=== PATIENT | female | born 1985 | race Caucasian/White ===

== ENCOUNTER 2018-05-23 00:18 | Outpatient (CLI) | payer SELFPAY ==
--- NOTE | 2018-05-23 09:20 | DI.RAD_ITS ---
SYMPTOMS/DIAGNOSIS: PAIN, LEFT FINGER, M79.645, ? FX LEFT HAND: Three views were obtained. No bony or soft tissue abnormality seen.
== END 2018-05-23 00:38 ==
PROVIDERS: PCP Nurse Practitioner; Visit Provider Internal Medicine
DX: M79.645 Pain in left finger(s) (principal)
CPT/HCPCS: 73130

== ENCOUNTER 2018-09-12 13:08 | Outpatient (REF) | payer SELFPAY | END 2018-09-12 13:28 | LOC: LBN 13:08 | PROVIDERS: PCP Nurse Practitioner; Visit Provider Physical Therapy Assistant | DX: K61.1 Rectal abscess (principal) | CPT/HCPCS: 87077; 87070; 87186; 87205 ==

== ENCOUNTER 2018-11-07 15:42 | Outpatient (REF) | payer SELFPAY ==
[2018-11-07 19:01] LABS: Absolute Basophil Count 0.01 k/cumm (0.0-0.2); Absolute Eosinophil Count 0.21 k/cumm (0.0-0.7); Absolute Lymphocyte Count 2.23 k/cumm (1.2-3.4); Absolute Neutrophil Count 1.46 k/cumm (1.2-6.7); Basophils % 0.2; HCT 37.5 % (36.0-46.0); HGB 12.5 g/dL (12.0-15.5); Mean Corp. HGB Concentration 33.3 g/dL (32.0-36.0); Mean Corpuscular Hemoglobin 28.9 pg (27.0-33.0); Mean Corpuscular Volume 86.8 fL (80-95); Mean Platelet Volume 13.1 fL (8.0-11.0); Monocytes % 7.1; Neutrophils % 34.7; RBC 4.32 m/cumm (4.00-5.20); RBC Distribution Width 14.3 % (11.7-14.6); White Blood Cell Count 4.21 k/cumm (4.4-10.8)
[2018-11-07 20:22] LABS: ESR 14 MM/HR (0-20); Platelet Count 112 x1000/uL (130-400)
[2018-11-08 14:34] LABS: LDH 166 U/L (81-234)
== END 2018-11-07 16:02 ==
LOC: LBN 15:42
PROVIDERS: PCP Nurse Practitioner; Visit Provider Family Medicine
DX: R59.1 Generalized enlarged lymph nodes (principal)
CPT/HCPCS: 85652; 83615; 85025

== ENCOUNTER 2021-03-07 19:37 | Emergency (ER) | payer SELFPAY ==
[2021-03-07 19:40] VITALS: BP 132/93; PULSE 66; RESP 18; TEMP 36.8; O2SAT 100
--- NOTE | 2021-03-07 19:45 | DI.RAD_ITS ---
Exam(s) XR KNEE RT 4V AP,LAT,HETAL,PAT EXAM: XR KNEE RT 4V AP,LAT,HETAL,PAT CLINICAL HISTORY: anterior lateral knee pain. TECHNIQUE: 2D digital imaging was performed. COMPARISON: No exams were available for comparison FINDINGS: BONES: No acute fracture is present. No bony destructive lesion is seen. JOINTS: The knee is normally aligned. No joint effusion is seen. SOFT TISSUE: Normal. IMPRESSION: Unremarkable radiographs of the right knee. DATA REPOSITORY: RADIATION DOSE DELIVERED:
--- NOTE | 2021-03-07 19:59 | ED.GENADUL_ITS ---
Discharge Plan Disposition Patient Disposition: HOME Condition: Good Discharge Details Clinical Impression: Internal derangement of knee Primary Care Provider: Lucia Mckinley ED Provider: Maria A Ellis Home Meds and New Rx's Prescriptions: Continued albuterol sulfate 90 mcg/actuation HFA aerosol inhaler 2 puff inhalation Q6H PRN (Reason: shortness of breath or wheezing) Qty: 8.5 RF: 0 calcium carbonate 500 MG tablet,chewable 500 mg CH PRN PRNRF: 0 Discharge Instructions Instructions: Knee Pain (ED) Additional Instructions: Your imaging and exam are reassuring here today. Please encourage rest, ice, elevation. Tylenol and ibuprofen for discomfort. Please continue with hinged knee brace until reevaluated by orthopedics. Please call orthopedics tomorrow to schedule follow-up appointment, number listed below. If you develop any new or worsening symptoms please seek care urgently once again. Stand Alone Forms: Work Release Referrals: Ambrocio Jefferson MD [ [facility]] - Medical Decision Making Patient is a pleasant 35-year-old female presenting today with chief complaint of right knee pain. She reports a prior to arrival she was standing her knee in an attempt to stretch. States that while stretching she had a sudden onset of anterior lateral knee pain. States that she felt a pop during that time. No previous injury or surgery to this knee. Patient is currently menstruating. On exam, patient appears nontoxic. She has some subjective swelling but no effusion or objective swelling is noted at this time. Distal pulses. Sensation is intact. Good range of motion of the ankle. Fully motion of the knee. Ligamentously intact with varus valgus stress testing as well as anterior posterior drawer. No effusion. She is tender over the anterior lateral joint line. Question with palpation of she had a previous meniscus injury that she was unaware of. However, I do not note any evidence to suggest a locking associated with this. Out of abundance of caution, will obtain x-ray for further evaluation. Will give Tylenol and ibuprofen for discomfort. FINDINGS: Bones/joints: No evidence of fracture. Negative for dislocation. No significant joint space narrowing. Patella tracks normally. Soft tissues: Negative for soft tissue air. No foreign bodies observed. No evidence of joint effusion. IMPRESSION: No acute osseous abnormality. Discussed findings with the patient. She is having some feeling of instability with ambulation, we will fit with a hinged knee brace. She also help with discomfort. Encourage rest, ice and elevation. Tylenol and/or ibuprofen as needed for discomfort. Will refer to orthopedics for reevaluation of internal derangement of the right knee. All of her questions and concerns were addressed and she is in agreement with this plan. HPI General Mode of arrival: ambulatory . Date/Time Provider Initiated Documentation: 03/07/21 19:43 . Limitations to Documentation: no limitations . Information obtained by: patient and RN notes reviewed . History of Present Illness 35 year old F presents to the emergency department with the chief complaint of right knee pain, described as moderate, with intensity rated at 7. Quality is described as aching, and is localized to the right and lower extremity. Patient reports no radiation. Patient started experiencing this minute(s) and it has been constant. Immobilization improves symptom(s), Movement worsens symptoms . Patient notes no other symptoms.. Patient did receive the following treatments prior to arrival, none Related Data Home Medications Medication Instructions Recorded Confirmed calcium carbonate 500 mg CH PRN PRN 10/16/16 11/11/18 albuterol sulfate 90 mcg/actuation 2 puff INHALATION Q6H PRN #8.5 g 11/08/20 11/08/20 aerosol inhaler Previous Rx's Medication Instructions Recorded albuterol sulfate 90 mcg/actuation 2 puff INHALATION Q6H PRN #8.5 g 11/08/20 aerosol inhaler Allergies Allergy/AdvReac Type Severity Reaction Status Date / Time No Known Allergies Allergy Verified 03/07/21 20:54 General Stated Complaint: Orthopedic AUSTYN: 4 Review of Systems Constitutional Constitutional: Reports as per HPI, Denies chills, Denies fever(s) and Denies weakness Musculoskeletal Musculoskeletal: Reports as per HPI and Denies tingling Integumentary/Breasts Skin/Breast: Reports as per HPI, Denies rash and Denies wounds Neurologic Neurologic: Reports as per HPI, Denies tingling, Denies paresthesias and Denies weakness [facility] Medical History (Updated 03/07/21 @ 21:52 by ELLA An) Cholelithiasis Epicondylitis, lateral, right Epicondylitis, lateral, right (12/01/15) Frequent headaches Frequent headaches (08/20/14) Gestational diabetes During 2nd . None during 3rd . Gestational diabetes mellitus in , unspecified control (04/13/15) 04/20/15 Glyburide 5mg at bedtime. 04/27/15 Glyburide 2.5mg in am. 05/16/15 Glybruide d/c'd. NPH 10units BID. History of gallstones (12/15/14) Singh cerclage present (01/05/15) Metatarsalgia of both feet (12/01/15) PND (paroxysmal nocturnal dyspnea) Spells of decreased attentiveness (08/20/14) Surgical History History of Incompetent cervix (12/30/14) Singh cervical cerclage with 3 pregnancies. Family History Mother No problems noted. Father No problems noted. Sister No problems noted. Grandfather , [place] No problems noted. 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 Seatbelt use: always Drive intox or ride w/int[employer] hazmat 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 driver: No Working smoke detector in home: Yes Carbon monox detector in home: Yes Do you feel safe at home: Yes Do you feel safe in your relationship?: Yes Exam Const General: cooperative, healthy appearing, comfortable, no acute distress, well developed and well groomed Nutritional Appearance: average body habitus and well nourished Orientation: alert and awake Resp Effort & Inspection: normal respiratory effort, able to speak in complete sentences and no respiratory distress Cardio Rate: regular rate Rhythm: regular rhythm Skin General skin exam: no rashes or lesions noted Lesions: no lesions Rashes: no rashes Trauma: no lacerations or abrasions Neuro General: patient alert and patient awake Cognition: normal cognition Speech: speech normal Gait: normal gait Motor: muscle tone normal throughout Sensory Exam: no sensory deficits noted Extrem Knee images: 1. Area of discomfort. No swelling, discoloration. No effusion. Full ROM. Ligamentously intact. Normal [place] exam. 2+ distal pulses. Calf is soft and non tender. Able to flex/extend ankle. Sensation intact. No evidence of dislocation. Psych Appearance: grossly normal and well kempt Mental Status: mental status grossly normal Speech and Movement: speech and movement normal Course Vital Signs Vital signs: Vital Signs Temperature 36.8 C 03/07/21 19:40 Pulse 66 03/07/21 19:40 Respiratory Rate 18 03/07/21 19:40 Blood Pressure 132/93 H 03/07/21 19:40 Pulse Oximetry 100 03/07/21 19:40 Temperature 36.8 C 03/07/21 19:40 Temperature Source Temporal Artery Scan 03/07/21 19:40 Pulse 66 03/07/21 19:40 Respiratory Rate 18 03/07/21 19:40 Respiratory Effort 03/07/21 19:45 Blood Pressure 132/93 H 03/07/21 19:40 Blood Pressure Position Sitting 03/07/21 19:40 Pulse Oximetry 100 03/07/21 19:40 Oxygen Delivery Method Room Air 03/07/21 19:40 Oxygen Flow Rate 0 03/07/21 19:40 Pain Level 7 03/07/21 19:45 Comment 03/07/21 19:40
[2021-03-07] MEDS: Acetaminophen 325 MG TAB 650 MG PO (20:03)
[2021-03-07] MEDS: Ibuprofen 600 MG TAB PO (20:03)
--- NOTE | 2021-03-07 20:45 | NUR.NOTE ---
Nursing Note: Patient taken to radiology via stretcher.
--- NOTE | 2021-03-07 21:33 | DI.VRAD_ITS ---
PROCEDURE INFORMATION: Exam: XR Left Knee Exam date and time: 03/07/2021 7:59 PM Age: 35 years old Clinical indication: Other: Anterior lateral knee pain TECHNIQUE: Imaging protocol: XR Left knee. Views: 4 or more views. COMPARISON: No relevant prior studies available. FINDINGS: Bones/joints: No evidence of fracture. Negative for dislocation. No significant joint space narrowing. Patella tracks normally. Soft tissues: Negative for soft tissue air. No foreign bodies observed. No evidence of joint effusion. IMPRESSION: No acute osseous abnormality. Dictated and Authenticated by: Mina Carroll MD. Ordering:EARNESTINE Saha MD
[2021-03-07 22:00] VITALS: BP 96/67; PULSE 70; RESP 20; TEMP 36.8; O2SAT 98
== END 2021-03-07 22:08 | disposition home or self-care (01) ==
PROVIDERS: Emergency Provider Physician Assistant; PCP Nurse Practitioner
DX: M23.8X1 Other internal derangements of right knee (principal)
CPT/HCPCS: 99283; 73564